=== PATIENT | female | born 1955 | race Caucasian/White ===

== ENCOUNTER 2016-12-15 10:21 | Emergency (ER) | payer OTHER ==
[2016-12-15 10:25] VITALS: PULSE 71; TEMP 98.6
[2016-12-15] MEDS ORDERED: NS 1,000 ML IV ONE (10:40)
[2016-12-15] MEDS ORDERED: ONDANSETRON 4 MG/2 ML VIAL IVP ONE (10:46)
[2016-12-15] MEDS ORDERED: KETOROLAC 30 MG/1 ML SDV IVP ONE (11:07)
[2016-12-15] MEDS ORDERED: METOCLOPRAMIDE 10 MG/2 ML VIAL IVP ONE (11:07)
[2016-12-15] MEDS ORDERED: DEXAMETHASONE 10 MG/ML VIAL IVP ONE (11:07)
--- NOTE | 2016-12-15 11:23 | EDPHY ---
H & P Stated Complaint: migraine starting at 0400 this morning Time Seen by Provider: 12/15/16 11:19 HPI/ROS: HPI: This is a 61-year-old female who presents with Chief Complaint: Migraine headache Location: Frontal Quality: Migraine headache Duration: Starting at 4 o'clock this morning Signs and Symptoms: No aura, + nausea, no vomiting, no neck stiffness, no fever , + light sensitivity, + noise sensitivity, no vision changes Timing: Sudden onset, constant Severity: Context: Patient reports that she traveled to the [facility] 3 days ago and returned yesterday. Had a large meal was some alcohol. Woke up around 4 o' clock this morning with a migraine headache that is typical for her and his presentation. Took Maxalt without relief. She states that she was diagnosed at 17 years old with migraine headache. Has never seen a neurologist, managed by primary care provider. Normally gets a migraine headache 1-2 times per month and ends of come into the ER for IV medications once per year. Her triggers she notes are stress, lack of sleep, alcohol intake. Modifying Factors: Maxalt and butalbital without relief Comment: ROS: Constitutional: No fever, no chills, no weight loss Eyes: No blurred vision Respiratory: No shortness of breath, no cough Cardiovascular: No chest pain Gastrointestinal: + nausea, + vomiting no diarrhea Genitourinary: No dysuria Extremities: No myalgias Neurologic: No weakness, no numbness Skin: No rashes Hematologic: No bruising, no bleeding MEDICAL/SURGICAL HISTORY: Migraine headache. - Personal History Current Tetanus/Diphtheria Vaccine: Yes Current Tetanus Diphtheria and Acellular Pertussis (TDAP): Yes Tetanus Vaccine Date: 2010 - Medical/Surgical History Hx Asthma: No Hx Chronic Respiratory Disease: No Hx Diabetes: No Hx Cardiac Disease: No Hx Renal Disease: No Hx Cirrhosis: No Hx Alcoholism: No Hx HIV/AIDS: No Hx Splenectomy or Spleen Trauma: No Other PMH: inflammatory bowel ds, migraines - Social History Smoking Status: Never smoked Additional Social History: . - Physical Exam Exam: CONSTITUTIONAL: Elderly white female, lying on ED stretcher in dark room, cool compress over her eyes, awake and alert, no obvious distress HEENT: Atraumatic and normocephalic, PERRL, EOMI. Tympanic membranes clear. Oropharynx clear, no exudate and moist pink mucosa. Airway patent. No lymphadenopathy. No meningismus. Cardiovascular: Normal S1/S2, regular rate, regular rhythm, without murmur rub or gallop. PULMONARY/CHEST: Symmetrical and nontender. Clear to auscultation bilaterally Good air movement. No accessory muscle usage. ABDOMEN: Soft, nondistended, nontender, no rebound, no guarding, no peritoneal signs, no masses or organomegaly. No CVAT. EXTREMITIES: 2/2 pulses, no deformities, no clubbing, no cyanosis or edema. NEUROLOGICAL: no focal neuro deficits. GCS 15. SKIN: Warm and dry, no erythema. no rash. Good capillary refill. Constitutional: Initial Vital Signs Temperature (C) 37 C 12/15/16 10:23 Heart Rate 71 12/15/16 10:23 Respiratory Rate 18 12/15/16 10:23 Blood Pressure 141/80 H 12/15/16 10:23 O2 Sat (%) 99 12/15/16 10:23 O2 Delivery Mode Room Air Allergies/Adverse Reactions: No Known Allergies Allergy (Verified 12/15/16 10:22) Home Medications: Medication Instructions Recorded Lialda 08/02/15 [id number] Cap 12/15/16 Maxalt 12/15/16 Medical Decision Making ED Course/Re-evaluation: Afebrile. No systemic signs. Headache is typical of migraine. No signs of CVA/temporal arteritis/sepsis/meningitis/herpes zoster Given IV Reglan; IV Decadron; IV Toradol; IV Benadryl with moderate relief 1145: Reassessed patient; pain down from 9/10 to 6/10. Differential Diagnosis: Differential diagnosis includes but is not limited to migraine headache, tension headache, cluster headache, meningitis, intracranial hemorrhage, hypertensive emergency, temporal arteritis. - Data Points Medications Given: Discontinued Medications Dexamethasone (Decadron Injection) 10 mg IVP EDNOW ONE Stop: 12/15/16 11:08 Last Admin: 12/15/16 11:20 Dose: 10 mg Diphenhydramine HCl (Benadryl Injection) 25 mg IVP EDNOW ONE Stop: 12/15/16 11:08 Last Admin: 12/15/16 11:19 Dose: 25 mg Sodium Chloride (Ns) 1,000 mls @ 0 mls/hr IV ONCE ONE PRN Reason: Wide Open Stop: 12/15/16 10:41 Last Admin: 12/15/16 10:48 Dose: 1,000 mls Ketorolac Tromethamine (Toradol) 30 mg IVP EDNOW ONE Stop: 12/15/16 11:08 Last Admin: 12/15/16 11:18 Dose: 30 mg Metoclopramide HCl (Reglan Injection) 10 mg IVP EDNOW ONE Stop: 12/15/16 11:08 Last Admin: 12/15/16 11:16 Dose: 10 mg Ondansetron HCl (Zofran) 4 mg IVP EDNOW ONE Stop: 12/15/16 10:47 Last Admin: 12/15/16 10:49 Dose: 4 mg Departure - Departure Disposition: Home, Routine, Self-Care Clinical Impression: Migraine Qualifiers: Migraine type: without aura Status migrainosus presence: without status migrainosus Intractability: not intractable Qualified Code(s): G43.009 - Migraine without aura, not intractable, without status migrainosus Condition: Good Instructions: Migraine Headache (ED) Referrals: Donnell Singh MD [Medical Doctor] - As per Instructions
[2016-12-15 12:56] VITALS: BP 107/73; RESP 16; O2SAT 97
== END 2016-12-15 12:56 | disposition home or self-care (01) ==
PROC: 3E0337Z Introduction of Electrolytic and Water Balance Substance into Peripheral Vein, Percutaneous Approach (ICD-10-PCS; principal; 2016-12-15)
DX: G43.009 Migraine without aura, not intractable, without status migrainosus (principal); R11.2 Nausea with vomiting, unspecified
CPT/HCPCS: 96374; J1100; J1200; J1885; J2405; J2765